=== PATIENT | male | born 1960 | race African-American/Black ===

== ENCOUNTER 2022-04-01 16:00 | Emergency (ER) | payer MEDICAID ==
[~2022-04-01] VITALS: Ht 177.8 cm; Wt 70.0 kg
[2022-04-01 16:02] VITALS: BP 118/66
[2022-04-01] MEDS ORDERED: CARBAMAZEPINE 100MG TABLET CHEW PO ONE (16:15)
[2022-04-01] MEDS ORDERED: LEVETIRACETAM 500MG TABLET PO ONE (16:15)
[2022-04-01] MEDS ORDERED: GABAPENTIN 300MG CAPSULE PO ONE (16:15)
[2022-04-01 19:20] LABS: BASOPHILS % 0.9 % (0.0-2.0); EOSINOPHILS % 0.7 % (0.0-5.0); HEMATOCRIT. 34.6 % (42.0-52.0); HEMOGLOBIN. 11.2 g/dL (14.0-18.0); LYMPHOCYTES % 23.8 % (20.0-50.0); MEAN CORPUSCULAR HEMOGLOBIN 29.4 pg (28.0-32.0); MEAN CORPUSCULAR VOLUME 90.6 fL (80.0-94.0); MEAN PLATELET VOLUME 6.8 fl (7.4-10.4); MONOCYTES % 10.6 % (2.0-8.0); PLATELET 235 x1000/uL (130-400); RED BLOOD CELL COUNT 3.82 mill/uL (4.7-6.1); RED CELL DISTRIBUTION WIDTH 14.5 % (11.6-14.6)
[2022-04-01 19:53] LABS: CHLORIDE 107 mEq/L (98-107)
[2022-04-01 20:03] LABS: ETHANOL BLOOD < 10 mg/dL
== END 2022-04-01 19:30 | disposition left against medical advice (07) ==
LOC: ER 16:06
DX: G40.509 Epileptic seizures related to external causes, not intractable, without status epilepticus (principal); D64.9 Anemia, unspecified; Z00.00 Encounter for general adult medical examination without abnormal findings; E11.9 Type 2 diabetes mellitus without complications; F17.290 Nicotine dependence, other tobacco product, uncomplicated; F12.10 Cannabis abuse, uncomplicated
CPT/HCPCS: 36415; 80053; 80165; 80307; 80320; 80329; 85025; 99284; G0480

== ENCOUNTER 2022-04-01 23:30 | Emergency (ER) | payer MEDICAID ==
[~2022-04-01] VITALS: Ht 185.4 cm; Wt 74.6 kg
[2022-04-02 00:05] VITALS: BP 123/74
== END 2022-04-02 02:00 | disposition left against medical advice (07) ==
LOC: ER 23:30
DX: Z53.21 Procedure and treatment not carried out due to patient leaving prior to being seen by health care provider (principal)